=== PATIENT | male | born 1960 | race Caucasian/White ===

== ENCOUNTER 2016-09-17 17:41 | Inpatient (IN) | payer OTHER ==
[~2016-09-17] VITALS: Ht 172.7 cm; Wt 88.0 kg
[~2016-09-17 17:41] MED LIST: ALDACTONE50 MG PO; AMB5 PO; AMITRIPTYLINE H25 MG PO; AZU500 PO; BEN10 PO; DILAUDID4 MG PO; DUR25P TOP; ELA25 PO; FENTANYL TR25 MCG/H1 TD; FOLIC ACID PO; HYDROMORPHONE4 MG PO; K10 PO; L40 PO; LASIX40 MG PO; MIR25 PO; MORPHINE SULFAT15 MG; PRI20 PO; SPIRONOLACTONE PO; SUCRALFATE PO; TRAZODONE50 M1 PO; VALACYCLOVIR HYD1 GM PO; ZOVIRAX5% TOP
--- NOTE | 2016-09-17 18:39 | NUR ---
PT AMBULATORY TO ROOM ORTHO FROM TRIAGE.
--- NOTE | 2016-09-17 19:06 | NUR ---
PT IS A 56 YEAR OLD MALE, PRESENTS TO ED WITH C/O N/V X5 DAYS. PT DENIES ANY DIARRHEA OR CONSTIPATION. PT HAS CHRONIC ABDOMINAL PAIN FROM X5 HERNIA SURGERIES. PT CHRONICALLY TAKES NORCOS. PT BREATHING IS EVEN AND UNLABORED, NO S/S OF RESPRAITORY DISTRESS. SPEECH IS CLEAR AND APPROPRIATE. PT A./OX4. PT HOOKED TO FULL RN CASE MANAGEMENT. MSE PERFORMED BY DR. MARINO.
[2016-09-17 19:29] LABS: microscopic required? NO
[2016-09-17 19:33] LABS: urine erythrocyte NEGATIVE (NEGATIVE)
[2016-09-17 19:59] LABS: BASOPHIL % 0.3 % (0-2); PLATELET COUNT 185 x10^3mcL (130-400)
--- NOTE | 2016-09-17 20:01 | NUR ---
PT STATES THAT PAIN MEDICATION AND NAUSEA MEDICATION REALLY HELPED HIM. PT RECLINING IN [facility] WITH NAD. WILL CONTINUE TO ANIRUDH.
[2016-09-17 20:37] LABS: ALBUMIN 4.5 g/dL (3.4-5.0); ALKALINE PHOSPHATASE 85 U/L (46-116); ALT/SGPT 43 U/L (16-63); AMYLASE 84 U/L (25-115); AST/SGOT 46 U/L (15-37); BILIRUBIN TOTAL 2.6 mg/dL (0.20-1.00); CALCIUM 8.1 mg/dL (8.5-10.1); CARBON DIOXIDE 27.4 mmol/L (21-32); CHLORIDE SERUM 96 mmol/L (98-107); CREATININE SERUM 1.1 mg/dL (0.7-1.3); GFR1 > 60 mL/min; GLUCOSE SERUM 120 mg/dL (74-106); LIPASE 202 IU/L (73-393); SODIUM SERUM 138 mmol/L (136-145)
[2016-09-17 20:39] LABS: TOTAL PROTEIN, SERUM 8.5 g/dL (6.4-8.2)
[2016-09-17 20:42] LABS: POTASSIUM SERUM 2.1 mmol/L (3.5-5.1)
[2016-09-17] MEDS ORDERED: GOOD SENSE OMEP20 MG PO (21:18)
[2016-09-17] MEDS ORDERED: COLACE100 MG PO (21:18)
--- NOTE | 2016-09-17 21:55 | NUR ---
REPORT GIVEN TO MADINA FOR FURTHER CARE OF PT.
[2016-09-17 22:41] VITALS: BP 114/84
--- NOTE | 2016-09-17 22:49 | NUR ---
REC'D AOX4, SPEECH CLEAR. DENIES PAIN. NOT ON TELE. ON RA, NO SOB NOTED. DENIES NV. AMBULATORY WITH STEADY GAIT. ORIENTED PT TO ROOM AND SURROUNDINGS. CALL LIGHT WITHIN REACH, PROVIDED REPORT TO SEAN PAINTER FOR CONTUINITY OF CARE
--- NOTE | 2016-09-17 23:00 | NUR ---
PT RESTING IN SEMI VANCE'S POSITION. NO C/O PAIN AT THIS TIME. NO DISTRESS NOTED. IV ON LEFT WRIST, KCL INFUSING. SAFETY MEASURES IN PLACE. INSTRUCTED PT TO CALL IF ASSISTANCE IS NEEDED. CALL LIGHT WITHIN REACH.
[2016-09-18 06:10] LABS: BASOPHIL % 0.3 % (0-2); PLATELET COUNT 135 x10^3mcL (130-400)
[2016-09-18 06:30] VITALS: BP 112/70
--- NOTE | 2016-09-18 06:30 | NUR ---
PT SLEPT ON AND OFF DURING SHIFT. C/O OF PAIN X1, MEDICATED WITH MORPHINE. SAFETY MEASURES IN PLACE. INSTRUCTED PT TO CALL IF ASSISTANCE IS NEEDED. CALL LIGHT WITHIN REACH. WILL ENDORSE CONTINUITY OF CARE TO DAY SHIFT RN.
[2016-09-18 06:38] LABS: RED CELL DISTRIBUTION WIDTH 14.8 % (11.5-14.5)
[2016-09-18 07:06] LABS: ALBUMIN 3.4 g/dL (3.4-5.0); ALKALINE PHOSPHATASE 63 U/L (46-116); ALT/SGPT 30 U/L (16-63); AST/SGOT 35 U/L (15-37); BILIRUBIN DIRECT 0.54 mg/dL (0.0-0.2); BILIRUBIN TOTAL 1.9 mg/dL (0.20-1.00); CALCIUM 7.4 mg/dL (8.5-10.1); CHLORIDE SERUM 101 mmol/L (98-107); GFR1 > 60 mL/min; GLUCOSE SERUM 97 mg/dL (74-106); MAGNESIUM 1.4 mg/dL (1.8-2.4); SODIUM SERUM 139 mmol/L (136-145); TOTAL PROTEIN, SERUM 6.4 g/dL (6.4-8.2)
[2016-09-18 07:09] LABS: POTASSIUM SERUM 2.3 mmol/L (3.5-5.1)
--- NOTE | 2016-09-18 07:25 | NUR ---
PT SITTING AT EDGE OF BED SAYING HE MAY WANT TO LEAVE BECAUSE HIS PAIN HAD NOT BEEN ADDRESED. IV IS NO LONGER PATENT. ASKED PT TO PLEASE BE PATIENT. I WILL GET REPORT INSERT NEW IV AND ADMIN PAIN MED. PT CAROLYN.
--- NOTE | 2016-09-18 08:24 | NUR ---
INSERTED NEW IV TO LEFT FA. REMOVED EXSISTING IV. CHANGED GOWN AND LINENS. PT SITTING UP EATING BREAKFAST. NO TELE. D5 1/2 NS & 40K INFUSING 80 CC HOUR. ADMIN MORPHINE 2 MG IV. PT SAYS HE IS FEELING CALMER NOW.
[2016-09-18 09:40] VITALS: BP 99/58
--- NOTE | 2016-09-18 10:02 | NUR ---
Andrez TO DR. HAUSER'S OFFICE. PT HAVING SEVERE ABD PAIN. 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
--- NOTE | 2016-09-18 13:07 | NUR ---
MAG CAALER INFUSED. FIRST KRIDER INFUSING. SEEN BY DR. MURPHY.
--- NOTE | 2016-09-18 14:26 | NUR ---
SLEEPING. STARTED 2ND K-RIDER.
--- NOTE | 2016-09-18 15:56 | NUR ---
Initial Nutrition Assessment Dx: Hypokalemia, Intractable Vomiting PMHx: Anxiety, Cirrhosis, chronic back pain, HTN PSHx: left foot sx, hernia repair x5 Labs: K 2.3, Ca 7.4, T Bili 1.9, alk phos 63, Mg 1.4, H/H 12.3/36, (09/18), Ammonia 42 (09/17) Meds: KCl, Dilaudid, Colace, Zofran, Diet: Clear Liquids PO Intake: 100% of cardiac breakfast Ht: 68in Wt: 194# BMI: 29.5 (overweight) IBW: 154# %IBW: 126% UBW: 165# Age: 56yo M Food Allergies: none Food Preferences: Dislikes pork, red meat, fried foods and lactose. Prefers chamomile with honey. 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 Recent wt change: gained 30# in 6 months, intentional Vitamin/Supplement use: MVI when he remembers Special diet at home: no red mean, processed food, cheese, pork or fried foods Physical activity: none Education: not warranted at this time Pt appeared drowsy but well-nourished upon RD visit. Pt had difficulty concentrating when prompted for questions, some answers were unclear. Pt chronically takes Norcos for abdominal pain s/p 5 hernia repairs. PT was in [facility] before vomiting began, said he "was eating fine and feeling great". Pt [place] in the [place]. Pt reports he suffers from insomnia and finds he has a bigger appetite on days he does not sleep. Patient willing to drink and oral supplement. Pt october D/C carlos 09/18, per RN. Estimated Nutritional Needs Based on actual body weight 88.2 kg Energy: 0642-5633 kcal/d (25-30 kcal/kg) Protein: 71-88 g/d (0.8-1g/kg) Fluid: 3666-7797 ml/d (1 ml/kcal) or per doctor Nutrition Diagnosis Altered GI function related to intractable vomiting as evidenced by intractable vomiting x 5 days LANGUAGE TEACHER and 2 episodes of vomiting since admission. Intervention 1. Advance as tolerated to Regular diet. 2. Consider adding Boost Breeze once daily if poor appetite persists and PO intake is <75% Monitor/Evaluate Goal: PO intake at least 75% of estimated needs Monitor: PO intake, Labs, GI function F/U in 2-5 days as MOD risk
--- NOTE | 2016-09-18 15:58 | NUR ---
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 Intervention 1. Advance as tolerated to Regular diet. 2. Consider adding Boost Breeze once daily if poor appetite persists and PO intake is <75%
[2016-09-18 16:54] VITALS: BP 103/75
--- NOTE | 2016-09-18 17:23 | NUR ---
CHANGED LINENS 2ND TIME TODAY.
--- NOTE | 2016-09-18 17:38 | NUR ---
2ND KAMRON COMPLETED.
--- NOTE | 2016-09-18 18:20 | NUR ---
AMBULATORY. DILAUDID PO ADMIN THIS AM HELPFUL FOR ABD. PAIN. RECEIVED 1 MAG RIDER AND 2 K RIDERS. TOLERATES CLEAR LIQUID DIET. VSS. CONTINUES ON D5 1/2 NS & 40K 80 CC HOUR. CALL LIGHT WITHIN REACH. BMP 1800 TO CK K+ LEVEL.
[2016-09-18 18:48] LABS: CALCIUM 7.7 mg/dL (8.5-10.1); CARBON DIOXIDE 25.6 mmol/L (21-32); CHLORIDE SERUM 104 mmol/L (98-107); CREATININE SERUM 0.9 mg/dL (0.7-1.3); GFR1 > 60 mL/min; GLUCOSE SERUM 98 mg/dL (74-106); POTASSIUM SERUM 3.3 mmol/L (3.5-5.1); SODIUM SERUM 141 mmol/L (136-145)
--- NOTE | 2016-09-18 19:25 | NUR ---
RECEIVED PT FROM AM NURSE. A/OX4. LAYING IN BED COMFORTABLY. NO SOB. COMPLAINS OF PAIN. PAIN SCALE 8/10. PULSES ARE EVEN AND PALPABLE. LUNG SOUNDS ARE CLEAR. BREATH SOUNDS ARE EVEN AND UNLABORED. ABD SOFT AND ROUND. NO EDEMA NOTED. CALL LIGHT WITHIN REACH. WILL CONTINUE TO MONITOR.
--- NOTE | 2016-09-18 20:36 | NUR ---
PT STARTED ON POTASSIUM CLORIDE. WILL CONTINUE TO MONITOR.
[2016-09-18 21:30] VITALS: BP 118/57
[2016-09-19 06:11] LABS: PLATELET COUNT 136 x10^3mcL (130-400)
[2016-09-19 06:19] VITALS: BP 102/72
[2016-09-19 06:40] LABS: RED CELL DISTRIBUTION WIDTH 15.6 % (11.5-14.5)
--- NOTE | 2016-09-19 06:52 | NUR ---
MADE ROUNDS. PT AWAKE. ALL NEEDS MET AND ATTENDED TO. DENIES PAIN AT THIS TIME. IV INFUSING WELL. BED IN LOWEST POSITION. CALL LIGHT WITHIN REACH. WILL CONTINUE TO MONITOR AND ENDORSE ALL CARE TO ONCOMING NURSE.
[2016-09-19 07:12] LABS: ALKALINE PHOSPHATASE 57 U/L (46-116); ALT/SGPT 28 U/L (16-63); AST/SGOT 32 U/L (15-37); BILIRUBIN DIRECT 0.52 mg/dL (0.0-0.2); BILIRUBIN TOTAL 1.6 mg/dL (0.20-1.00); CALCIUM 7.5 mg/dL (8.5-10.1); CARBON DIOXIDE 21.6 mmol/L (21-32); CHLORIDE SERUM 106 mmol/L (98-107); CREATININE SERUM 0.8 mg/dL (0.7-1.3); GFR1 > 60 mL/min; GLUCOSE SERUM 88 mg/dL (74-106); POTASSIUM SERUM 3.2 mmol/L (3.5-5.1); SODIUM SERUM 141 mmol/L (136-145)
--- NOTE | 2016-09-19 07:45 | NUR ---
ALERT AND ORIENTED. C/O ABD PAIN AND NAUSEA. BREATHING FREELY ON RA. NO TELE. INDEPENDENT W ADL'S. CLEAR LIQUID BREAKFAST. WANTS SOMETHINE MORE SOLID. D5/12 NS & 40K INFUSING 80 CC HOUR. VSS. CALL LIGHT WITHIN REACH.
--- NOTE | 2016-09-19 08:14 | NUR ---
RECEIVED ORDERS FROM DR. MEIR TOBAR FOR K+ 3.2, DIET FULL LIQUIDS ADVANCE TOLERATED AND BMP AT NOON.
[2016-09-19 09:30] LABS: BAND NEUTROPHIL 2 % (0-10); BASOPHIL 0 % (0-2); MONOCYTE 12 % (0-7); SEGMENTED NEUTROPHILS 51 % (37-75)
[2016-09-19 09:31] LABS: rbc morphology (normal/abnorm) ABNORMAL (NORMAL)
[2016-09-19 10:06] VITALS: BP 110/77
[2016-09-19 13:18] LABS: CALCIUM 7.7 mg/dL (8.5-10.1); CARBON DIOXIDE 25.2 mmol/L (21-32); CHLORIDE SERUM 108 mmol/L (98-107); CREATININE SERUM 0.8 mg/dL (0.7-1.3); GFR1 > 60 mL/min; GLUCOSE SERUM 119 mg/dL (74-106); POTASSIUM SERUM 3.8 mmol/L (3.5-5.1); SODIUM SERUM 141 mmol/L (136-145)
[2016-09-19 13:21] VITALS: BP 110/77
--- NOTE | 2016-09-19 15:24 | NUR ---
PT WAITING FOR HIS SISTER TO PICK HIM UP. DC'D TO HOME. IV X 2 DC'D NO TELE. ALL DC INSTRUCTIONS REVIEWED WITH AND SIGNED BY PT. NO PRESCRIPTIONS GIVEN. TO CALL PCP WEDNESDAY FOR DONOVAN WITHIN 1 WEEK. LAST K 3.8.
== END 2016-09-19 16:00 | disposition home or self-care (01) | DRG 641 ==
LOC: ED 17:41 → MU 21:19
PROVIDERS: Emergency Medicine; Internal Medicine Pulmonary Disease; ADMIT Internal Medicine
DX: E87.6 Hypokalemia (principal); K56.7 Ileus, unspecified; F11.23 Opioid dependence with withdrawal; K72.90 Hepatic failure, unspecified without coma; I10 Essential (primary) hypertension; K70.30 Alcoholic cirrhosis of liver without ascites; G89.29 Other chronic pain; F41.8 Other specified anxiety disorders; Z76.5 Malingerer [conscious simulation]; R11.2 Nausea with vomiting, unspecified; T40.0X5A Adverse effect of opium, initial encounter; Y92.018 Other place in single-family (private) house as the place of occurrence of the external cause
CPT/HCPCS: 83880; J1885; J2270; J2405; J3475; J3480; J7030; J7040; Q0092

== ENCOUNTER 2016-10-04 13:01 | Emergency (ER) | payer OTHER ==
[~2016-10-04] VITALS: Ht 175.3 cm; Wt 94.3 kg
[~2016-10-04 13:01] MED LIST changes: +COLACE100 MG PO; +GOOD SENSE OMEP20 MG PO
[2016-10-04 14:20] LABS: ALBUMIN 3.8 g/dL (3.4-5.0); ALKALINE PHOSPHATASE 71 U/L (46-116); ALT/SGPT 46 U/L (16-63); AST/SGOT 41 U/L (15-37); BILIRUBIN TOTAL 0.8 mg/dL (0.20-1.00); CARBON DIOXIDE 28.6 mmol/L (21-32); CHLORIDE SERUM 105 mmol/L (98-107); GFR1 > 60 mL/min; GLUCOSE SERUM 105 mg/dL (74-106); LIPASE 189 IU/L (73-393); SODIUM SERUM 141 mmol/L (136-145); TOTAL PROTEIN, SERUM 7.2 g/dL (6.4-8.2)
[2016-10-04 14:24] LABS: PLATELET COUNT 163 x10^3mcL (130-400); RED CELL DISTRIBUTION WIDTH 14.4 % (11.5-14.5)
[2016-10-04 14:26] LABS: POTASSIUM SERUM 2.9 mmol/L (3.5-5.1)
[2016-10-04 15:53] LABS: MONOCYTE 9 % (0-7); SEGMENTED NEUTROPHILS 69 % (37-75)
[2016-10-04 15:54] LABS: BAND NEUTROPHIL 0 % (0-10); BASOPHIL 0 % (0-2); PLATELET MORPHOLOGY LARGE PLATELET SEEN; rbc morphology (normal/abnorm) NORMAL (NORMAL)
[2016-10-04 15:55] VITALS: BP 138/72
== END 2016-10-04 15:55 | disposition home or self-care (01) ==
LOC: ED 13:01
PROVIDERS: Emergency Medicine
DX: E87.6 Hypokalemia (principal); I10 Essential (primary) hypertension; R25.2 Cramp and spasm; K74.60 Unspecified cirrhosis of liver; Z88.0 Allergy status to penicillin; Z79.899 Other long term (current) drug therapy
CPT/HCPCS: J1885; Q0162

== ENCOUNTER 2016-12-03 13:10 | Inpatient (IN) | payer OTHER ==
[~2016-12-03] VITALS: Ht 172.7 cm; Wt 84.0 kg
[2016-12-03 15:45] LABS: BASOPHIL % 0.6 % (0-2); PLATELET COUNT 163 x10^3mcL (130-400); RED CELL DISTRIBUTION WIDTH 13.9 % (11.5-14.5)
[2016-12-03 16:05] LABS: ALBUMIN 4.4 g/dL (3.4-5.0); ALKALINE PHOSPHATASE 89 U/L (46-116); ALT/SGPT 42 U/L (16-63); AST/SGOT 45 U/L (15-37); BILIRUBIN TOTAL 1.4 mg/dL (0.20-1.00); CALCIUM 8.6 mg/dL (8.5-10.1); CARBON DIOXIDE 27.6 mmol/L (21-32); CHLORIDE SERUM 98 mmol/L (98-107); CHOLESTEROL 139 mg/dL (<200); CHOLESTEROL/HDL RATIO 2.4; GFR1 > 60 mL/min; GLUCOSE SERUM 121 mg/dL (74-106); HDL CHOLESTEROL 59 mg/dL (40-60); LIPASE 158 IU/L (73-393); SODIUM SERUM 138 mmol/L (136-145); TRIGLYCERIDES 89 mg/dL (<150)
[2016-12-03 16:07] LABS: TOTAL PROTEIN, SERUM 8.4 g/dL (6.4-8.2)
[2016-12-03 16:08] LABS: POTASSIUM SERUM 2.4 mmol/L (3.5-5.1)
[2016-12-03 16:14] LABS: microscopic required? NO
[2016-12-03 16:24] LABS: T3 TOTAL 1.28 ng/mL
[2016-12-03 16:30] LABS: FREE T4 1.12 ng/dL (0.76-1.46); T4(THYROXINE) 7.8 ug/dL (4.7-13.3)
[2016-12-03 16:59] LABS: urine erythrocyte NEGATIVE (NEGATIVE)
[2016-12-03] MEDS ORDERED: LACTULOSE10 GM/152 PO (17:24)
[2016-12-03 18:12] LABS: MAGNESIUM 1.5 mg/dL (1.8-2.4); PHOSPHOROUS 3.6 mg/dL (2.5-4.9)
[2016-12-03 18:22] VITALS: BP 144/102
[2016-12-03 21:31] VITALS: BP 119/79
[2016-12-03 22:51] LABS: CALCIUM 7.9 mg/dL (8.5-10.1); CARBON DIOXIDE 29.7 mmol/L (21-32); CHLORIDE SERUM 100 mmol/L (98-107); CREATININE SERUM 1.1 mg/dL (0.7-1.3); GFR1 > 60 mL/min; GLUCOSE SERUM 148 mg/dL (74-106); POTASSIUM SERUM 3.2 mmol/L (3.5-5.1); SODIUM SERUM 137 mmol/L (136-145)
[2016-12-04 05:41] VITALS: BP 110/76
[2016-12-04 05:53] LABS: BASOPHIL % 0.4 % (0-2); PLATELET COUNT 132 x10^3mcL (130-400); RED CELL DISTRIBUTION WIDTH 13.9 % (11.5-14.5)
[2016-12-04 06:13] LABS: CALCIUM 7.8 mg/dL (8.5-10.1); CARBON DIOXIDE 25.1 mmol/L (21-32); CHLORIDE SERUM 101 mmol/L (98-107); GFR1 > 60 mL/min; GLUCOSE SERUM 123 mg/dL (74-106); MAGNESIUM 1.7 mg/dL (1.8-2.4); PHOSPHOROUS 3.3 mg/dL (2.5-4.9); SODIUM SERUM 137 mmol/L (136-145)
[2016-12-04 06:23] LABS: POTASSIUM SERUM 2.8 mmol/L (3.5-5.1)
[2016-12-04 10:25] VITALS: BP 112/68
[2016-12-04 14:46] VITALS: BP 106/70
[2016-12-04 15:52] LABS: CALCIUM 8.3 mg/dL (8.5-10.1); CARBON DIOXIDE 26.8 mmol/L (21-32); CHLORIDE SERUM 99 mmol/L (98-107); CREATININE SERUM 1.3 mg/dL (0.7-1.3); GFR1 > 60 mL/min; GLUCOSE SERUM 146 mg/dL (74-106); POTASSIUM SERUM 3.3 mmol/L (3.5-5.1); SODIUM SERUM 135 mmol/L (136-145)
[2016-12-04 17:23] VITALS: Ht 172.7 cm; Wt 84.0 kg
[2016-12-04 18:10] VITALS: BP 96/66
[2016-12-04 21:46] VITALS: BP 114/77
[2016-12-05 06:01] VITALS: BP 128/73
[2016-12-05 06:32] LABS: CARBON DIOXIDE 23.6 mmol/L (21-32); CHLORIDE SERUM 103 mmol/L (98-107); GFR1 > 60 mL/min; GLUCOSE SERUM 149 mg/dL (74-106); MAGNESIUM 1.7 mg/dL (1.8-2.4); POTASSIUM SERUM 3.4 mmol/L (3.5-5.1); SODIUM SERUM 138 mmol/L (136-145)
[2016-12-05 06:35] LABS: BASOPHIL % 0.2 % (0-2); RED CELL DISTRIBUTION WIDTH 13.9 % (11.5-14.5)
[2016-12-05 06:40] LABS: PLATELET COUNT 113 x10^3mcL (130-400)
[2016-12-05 09:38] VITALS: BP 124/78
[2016-12-05] MEDS ORDERED: XIFAXAN550 M1 PO (10:26)
[2016-12-05] MEDS ORDERED: INSPRA25 MG PO (10:28)
[2016-12-05 10:50] VITALS: BP 124/78
== END 2016-12-05 11:50 | disposition home or self-care (01) | DRG 641 ==
LOC: ED 13:10 → DU 17:01
PROVIDERS: Specialist; ADMIT Family Medicine
DX: E87.6 Hypokalemia (principal); J90 Pleural effusion, not elsewhere classified; K72.90 Hepatic failure, unspecified without coma; R73.03 Prediabetes; K70.30 Alcoholic cirrhosis of liver without ascites; F10.10 Alcohol abuse, uncomplicated; I10 Essential (primary) hypertension; G89.29 Other chronic pain; Z68.28 Body mass index [BMI] 28.0-28.9, adult
CPT/HCPCS: 36600; 82962; 83880; 84439; G0480; J1170; J1940; J2270; J2405; J3475; J3480; J7030; Q0092; Q9967

== ENCOUNTER 2016-12-18 12:37 | Emergency (ER) | payer OTHER ==
[~2016-12-18] VITALS: Ht 175.3 cm; Wt 92.1 kg
[~2016-12-18 12:37] MED LIST changes: +INSPRA25 MG PO; +LACTULOSE10 GM/152 PO; +XIFAXAN550 M1 PO
[2016-12-18 16:18] LABS: ALBUMIN 3.9 g/dL (3.4-5.0); ALKALINE PHOSPHATASE 77 U/L (46-116); ALT/SGPT 37 U/L (16-63); AST/SGOT 36 U/L (15-37); BILIRUBIN TOTAL 1.3 mg/dL (0.20-1.00); CALCIUM 8.5 mg/dL (8.5-10.1); CARBON DIOXIDE 27.2 mmol/L (21-32); CHLORIDE SERUM 101 mmol/L (98-107); GFR1 > 60 mL/min; GLUCOSE SERUM 90 mg/dL (74-106); SODIUM SERUM 139 mmol/L (136-145); TOTAL PROTEIN, SERUM 7.5 g/dL (6.4-8.2)
[2016-12-18 16:27] LABS: POTASSIUM SERUM 2.8 mmol/L (3.5-5.1)
[2016-12-18 17:09] LABS: BASOPHIL % 0.3 % (0-2); PLATELET COUNT 153 x10^3mcL (130-400); RED CELL DISTRIBUTION WIDTH 14.3 % (11.5-14.5)
[2016-12-18 17:48] LABS: MAGNESIUM 1.5 mg/dL (1.8-2.4)
[2016-12-18 22:34] VITALS: BP 100/63
[2016-12-18 23:23] LABS: MAGNESIUM 1.5 mg/dL (1.8-2.4); POTASSIUM SERUM 3.2 mmol/L (3.5-5.1)
== END 2016-12-19 00:08 | disposition home or self-care (01) ==
LOC: ED 12:37
PROVIDERS: Emergency Medicine
DX: E87.6 Hypokalemia (principal); M79.1 Myalgia
CPT/HCPCS: J1885; J3475; J3480; J7030; J7050

== ENCOUNTER 2017-02-10 15:28 | Emergency (ER) | payer OTHER ==
[~2017-02-10] VITALS: Ht 172.7 cm; Wt 96.3 kg
[2017-02-10 16:24] LABS: CALCIUM 8.5 mg/dL (8.5-10.1); CARBON DIOXIDE 24.3 mmol/L (21-32); CHLORIDE SERUM 104 mmol/L (98-107); CREATININE SERUM 0.9 mg/dL (0.7-1.3); GFR1 > 60 mL/min; GLUCOSE SERUM 128 mg/dL (74-106); POTASSIUM SERUM 3.3 mmol/L (3.5-5.1); SODIUM SERUM 138 mmol/L (136-145)
[2017-02-10 16:29] LABS: ALBUMIN 3.7 g/dL (3.4-5.0); ALKALINE PHOSPHATASE 74 U/L (46-116); ALT/SGPT 42 U/L (16-63); AST/SGOT 47 U/L (15-37); BILIRUBIN TOTAL 0.86 mg/dL (0.20-1.00); CHOLESTEROL 113 mg/dL (<200); HDL CHOLESTEROL 53 mg/dL (40-60); MAGNESIUM 1.9 mg/dL (1.8-2.4); TOTAL PROTEIN, SERUM 7.7 g/dL (6.4-8.2)
[2017-02-10 16:32] LABS: BASOPHIL % 0.5 % (0-2); PLATELET COUNT 153 x10^3mcL (130-400)
[2017-02-10 16:55] LABS: RED CELL DISTRIBUTION WIDTH 15.1 % (11.5-14.5)
[2017-02-10 18:16] LABS: microscopic required? NO
[2017-02-10 18:43] LABS: UA SPECIFIC GRAVITY 1.005 (1.005-1.035)
[2017-02-10 18:44] LABS: urine erythrocyte NEGATIVE (NEGATIVE)
[2017-02-10 19:53] VITALS: BP 144/96
== END 2017-02-10 19:53 | disposition home or self-care (01) ==
LOC: ED 15:28
PROVIDERS: Emergency Medicine
DX: R53.1 Weakness (principal); I10 Essential (primary) hypertension; G89.29 Other chronic pain; M54.9 Dorsalgia, unspecified; Z88.0 Allergy status to penicillin; M17.11 Unilateral primary osteoarthritis, right knee; R42 Dizziness and giddiness; R11.2 Nausea with vomiting, unspecified
CPT/HCPCS: J2405; J3010

== ENCOUNTER 2017-04-28 07:19 | Emergency (ER) | payer OTHER ==
[~2017-04-28] VITALS: Ht 175.3 cm; Wt 98.0 kg
[2017-04-28 08:04] LABS: PLATELET COUNT 147 x10^3mcL (130-400); RED CELL DISTRIBUTION WIDTH 13.8 % (11.5-14.5)
[2017-04-28 08:25] LABS: ALBUMIN 3.5 g/dL (3.4-5.0); ALKALINE PHOSPHATASE 72 U/L (46-116); ALT/SGPT 34 U/L (16-63); AST/SGOT 47 U/L (15-37); CALCIUM 8.1 mg/dL (8.5-10.1); CARBON DIOXIDE 30.9 mmol/L (21-32); CHLORIDE SERUM 97 mmol/L (98-107); CREATININE SERUM 1.2 mg/dL (0.7-1.3); GFR1 > 60 mL/min; GLUCOSE SERUM 196 mg/dL (74-106); HDL CHOLESTEROL 40 mg/dL (40-60); SODIUM SERUM 136 mmol/L (136-145); TOTAL PROTEIN, SERUM 7.5 g/dL (6.4-8.2); TRIGLYCERIDES 66 mg/dL (<150)
[2017-04-28 08:27] LABS: CHOLESTEROL 109 mg/dL (<200); CHOLESTEROL/HDL RATIO 2.7; POTASSIUM SERUM 2.8 mmol/L (3.5-5.1)
[2017-04-28 08:28] LABS: FREE T4 0.99 ng/dL (0.76-1.46); FREE THYROXINE INDEX 2.1 ug/dL (1.4-4.5); T4(THYROXINE) 6.1 ug/dL (4.7-13.3)
[2017-04-28 08:30] LABS: T3 TOTAL 1.02 ng/mL
[2017-04-28 09:41] LABS: BAND NEUTROPHIL 1 % (0-10); MONOCYTE 10 % (0-7); SEGMENTED NEUTROPHILS 60 % (37-75)
[2017-04-28 09:42] LABS: PLATELET MORPHOLOGY LARGE PLATELET SEEN; rbc morphology (normal/abnorm) NORMAL (NORMAL)
[2017-04-28 09:56] VITALS: BP 121/79
== END 2017-04-28 10:15 | disposition home or self-care (01) ==
LOC: ED 07:19
PROVIDERS: Specialist
DX: E87.6 Hypokalemia (principal); I10 Essential (primary) hypertension; G89.29 Other chronic pain; Z88.0 Allergy status to penicillin; Z79.899 Other long term (current) drug therapy
CPT/HCPCS: 36415; 83880; 84439; Q0092

== ENCOUNTER 2017-11-23 11:27 | Emergency (ER) | payer OTHER ==
[~2017-11-23] VITALS: Ht 175.3 cm; Wt 97.1 kg
[2017-11-23 11:32] VITALS: Ht 175.3 cm; Wt 97.1 kg
[2017-11-23 15:05] LABS: UA SPECIFIC GRAVITY <=1.005 (1.005-1.035); microscopic required? YES; urine erythrocyte NEGATIVE (NEGATIVE)
[2017-11-23 15:07] LABS: BASOPHIL % 0.3 % (0-2); PLATELET COUNT 138 x10^3mcL (130-400); RED CELL DISTRIBUTION WIDTH 14.2 % (11.5-14.5)
[2017-11-23 15:23] LABS: ALBUMIN 3.6 g/dL (3.4-5.0); ALKALINE PHOSPHATASE 67 U/L (46-116); ALT/SGPT 56 U/L (16-63); AST/SGOT 51 U/L (15-37); BILIRUBIN TOTAL 1.29 mg/dL (0.20-1.00); CALCIUM 8.8 mg/dL (8.5-10.1); CHLORIDE SERUM 106 mmol/L (98-107); CREATININE SERUM 1.1 mg/dL (0.7-1.3); GFR1 > 60 mL/min; GLUCOSE SERUM 128 mg/dL (74-106); LIPASE 233 IU/L (73-393); MAGNESIUM 1.8 mg/dL (1.8-2.4); SODIUM SERUM 142 mmol/L (136-145); TOTAL PROTEIN, SERUM 7.2 g/dL (6.4-8.2)
[2017-11-23 15:33] LABS: POTASSIUM SERUM 2.8 mmol/L (3.5-5.1)
[2017-11-23 21:20] VITALS: BP 110/71
== END 2017-11-23 21:20 | disposition home or self-care (01) ==
LOC: ED 11:27
PROVIDERS: Emergency Medicine
DX: N39.0 Urinary tract infection, site not specified (principal); R42 Dizziness and giddiness; E87.6 Hypokalemia; I10 Essential (primary) hypertension; G89.29 Other chronic pain; M54.9 Dorsalgia, unspecified; Z88.0 Allergy status to penicillin
CPT/HCPCS: 83880; J3475; J3490

== ENCOUNTER 2018-02-01 09:11 | Emergency (ER) | payer OTHER ==
[~2018-02-01] VITALS: Ht 175.3 cm; Wt 95.3 kg
[2018-02-01 09:16] VITALS: Ht 175.3 cm; Wt 95.3 kg
[2018-02-01 10:33] LABS: BASOPHIL % 1.1 % (0-2); PLATELET COUNT 170 x10^3mcL (130-400)
[2018-02-01 10:35] LABS: RED CELL DISTRIBUTION WIDTH 15.9 % (11.5-14.5)
[2018-02-01 10:59] LABS: CALCIUM 8.3 mg/dL (8.5-10.1); CARBON DIOXIDE 25.5 mmol/L (21-32); CHLORIDE SERUM 104 mmol/L (98-107); CREATININE SERUM 1.2 mg/dL (0.7-1.3); GFR1 > 60 mL/min; GLUCOSE SERUM 117 mg/dL (74-106); POTASSIUM SERUM 4.1 mmol/L (3.5-5.1); SODIUM SERUM 137 mmol/L (136-145)
[2018-02-01 11:58] VITALS: BP 140/81
== END 2018-02-01 11:58 | disposition home or self-care (01) ==
LOC: ED 09:11
PROVIDERS: Emergency Medicine
DX: S62.001A Unspecified fracture of navicular [scaphoid] bone of right wrist, initial encounter for closed fracture (principal); R42 Dizziness and giddiness; Z88.0 Allergy status to penicillin; I10 Essential (primary) hypertension; F41.9 Anxiety disorder, unspecified; G89.29 Other chronic pain; M54.9 Dorsalgia, unspecified; W01.0XXA Fall on same level from slipping, tripping and stumbling without subsequent striking against object, initial encounter; Y92.89 Other specified places as the place of occurrence of the external cause; Y93.89 Activity, other specified; Y99.8 Other external cause status
CPT/HCPCS: A4570; J2405; Q0092

== ENCOUNTER 2018-09-09 11:48 | Emergency (ER) | payer BC ==
[~2018-09-09] VITALS: Ht 175.3 cm; Wt 94.1 kg
[2018-09-09 11:53] VITALS: Ht 175.3 cm; Wt 94.1 kg
[2018-09-09 14:13] LABS: BASOPHIL % 0.1 % (0-2)
[2018-09-09 14:16] LABS: CALCIUM 8.3 mg/dL (8.5-10.1); CARBON DIOXIDE 26.7 mmol/L (21-32); CHLORIDE SERUM 99 mmol/L (98-107); GFR1 > 60 mL/min; GLUCOSE SERUM 122 mg/dL (74-106); POTASSIUM SERUM 3.1 mmol/L (3.5-5.1); SODIUM SERUM 138 mmol/L (136-145)
[2018-09-09 14:21] LABS: ALBUMIN 3.8 g/dL (3.4-5.0); ALKALINE PHOSPHATASE 102 U/L (46-116); ALT/SGPT 60 U/L (16-63); AST/SGOT 73 U/L (15-37); BILIRUBIN TOTAL 3.5 mg/dL (0.20-1.00)
[2018-09-09 14:26] LABS: PLATELET COUNT 96 x10^3mcL (130-400); RED CELL DISTRIBUTION WIDTH 14.9 % (11.5-14.5)
[2018-09-09 19:09] VITALS: BP 143/96
[2018-09-10] MEDS ORDERED: POTASSIUM CHLO10 ME2 PO (14:44)
== END 2018-09-09 19:13 | disposition home or self-care (01) ==
LOC: ED 11:48
PROVIDERS: Emergency Medicine
DX: B34.9 Viral infection, unspecified (principal); R07.89 Other chest pain; G89.29 Other chronic pain; I10 Essential (primary) hypertension; F41.9 Anxiety disorder, unspecified; K74.60 Unspecified cirrhosis of liver; Z88.0 Allergy status to penicillin; Z98.890 Other specified postprocedural states
CPT/HCPCS: 83880; 87491; 87591; J1885; J2405; Q0092

== ENCOUNTER 2018-09-10 11:17 | Inpatient (IN) | payer OTHER ==
[~2018-09-10] VITALS: Ht 175.3 cm; Wt 94.7 kg
[2018-09-10 11:29] VITALS: Ht 175.3 cm; Wt 94.7 kg
[2018-09-10 12:23] LABS: PLATELET COUNT 95 x10^3mcL (130-400); RED CELL DISTRIBUTION WIDTH 15.1 % (11.5-14.5)
[2018-09-10 12:32] LABS: ALBUMIN 3.4 g/dL (3.4-5.0); ALKALINE PHOSPHATASE 81 U/L (46-116); ALT/SGPT 57 U/L (16-63); AST/SGOT 74 U/L (15-37); BILIRUBIN TOTAL 2.72 mg/dL (0.20-1.00); CALCIUM 7.6 mg/dL (8.5-10.1); CARBON DIOXIDE 20.7 mmol/L (21-32); CHLORIDE SERUM 97 mmol/L (98-107); CREATININE SERUM 1.2 mg/dL (0.7-1.3); GFR1 > 60 mL/min; GLUCOSE SERUM 117 mg/dL (74-106); SODIUM SERUM 132 mmol/L (136-145); TOTAL PROTEIN, SERUM 7.9 g/dL (6.4-8.2)
[2018-09-10 12:49] LABS: BAND NEUTROPHIL 1 % (0-10); BASOPHIL 0 % (0-2); MONOCYTE 4 % (0-7); SEGMENTED NEUTROPHILS 93 % (37-75)
[2018-09-10 12:50] LABS: POTASSIUM SERUM 2.8 mmol/L (3.5-5.1)
[2018-09-10 12:51] LABS: PLATELET MORPHOLOGY PLATELETS DECREASED; rbc morphology (normal/abnorm) ABNORMAL (NORMAL)
[2018-09-10 14:15] LABS: microscopic required? YES; urine erythrocyte TRACE (NEGATIVE)
[2018-09-10] MEDS ORDERED: POTASSIUM CHLO10 ME2 PO (14:44)
[2018-09-10 16:47] VITALS: BP 130/88
[2018-09-10 19:40] VITALS: BP 125/105
[2018-09-10 23:09] VITALS: BP 116/77
[2018-09-11 03:12] VITALS: BP 114/69
[2018-09-11 04:35] LABS: BASOPHIL % 0.1 % (0-2)
[2018-09-11 04:36] LABS: PLATELET COUNT 84 x10^3mcL (130-400)
[2018-09-11 04:50] LABS: ALBUMIN 2.9 g/dL (3.4-5.0); ALKALINE PHOSPHATASE 74 U/L (46-116); ALT/SGPT 48 U/L (16-63); AST/SGOT 66 U/L (15-37); BILIRUBIN TOTAL 1.7 mg/dL (0.20-1.00); CARBON DIOXIDE 21.9 mmol/L (21-32); CHLORIDE SERUM 104 mmol/L (98-107); GFR1 > 60 mL/min; GLUCOSE SERUM 89 mg/dL (74-106); POTASSIUM SERUM 3.1 mmol/L (3.5-5.1); SODIUM SERUM 138 mmol/L (136-145); TOTAL PROTEIN, SERUM 7.5 g/dL (6.4-8.2)
[2018-09-11 07:26] VITALS: BP 146/90
[2018-09-11 16:42] VITALS: BP 125/80
[2018-09-11 20:39] VITALS: BP 125/83
[2018-09-12 04:25] VITALS: BP 132/88
[2018-09-12 06:43] LABS: CALCIUM 7.8 mg/dL (8.5-10.1); CARBON DIOXIDE 24.4 mmol/L (21-32); CHLORIDE SERUM 102 mmol/L (98-107); CREATININE SERUM 0.8 mg/dL (0.7-1.3); GFR1 > 60 mL/min; GLUCOSE SERUM 103 mg/dL (74-106); MAGNESIUM 1.8 mg/dL (1.8-2.4); POTASSIUM SERUM 3.3 mmol/L (3.5-5.1); SODIUM SERUM 137 mmol/L (136-145)
[2018-09-12 06:48] LABS: BASOPHIL % 0.2 % (0-2)
[2018-09-12 06:56] LABS: PLATELET COUNT 118 x10^3mcL (130-400); RED CELL DISTRIBUTION WIDTH 15.6 % (11.5-14.5)
[2018-09-12 08:45] VITALS: BP 113/68
[2018-09-12 11:59] VITALS: BP 109/68
[2018-09-12 16:43] VITALS: BP 125/80
[2018-09-12 20:44] VITALS: BP 123/93
[2018-09-13 04:43] VITALS: BP 124/73
[2018-09-13 07:21] LABS: BASOPHIL % 0.4 % (0-2)
[2018-09-13 07:25] LABS: ALKALINE PHOSPHATASE 96 U/L (46-116); ALT/SGPT 67 U/L (16-63); AST/SGOT 100 U/L (15-37); BILIRUBIN DIRECT 0.68 mg/dL (0.0-0.2); BILIRUBIN TOTAL 1.4 mg/dL (0.20-1.00); CALCIUM 8.3 mg/dL (8.5-10.1); CARBON DIOXIDE 25.5 mmol/L (21-32); CHLORIDE SERUM 107 mmol/L (98-107); CREATININE SERUM 0.8 mg/dL (0.7-1.3); GFR1 > 60 mL/min; GLUCOSE SERUM 105 mg/dL (74-106); POTASSIUM SERUM 4.2 mmol/L (3.5-5.1); SODIUM SERUM 141 mmol/L (136-145); TOTAL PROTEIN, SERUM 7.6 g/dL (6.4-8.2)
[2018-09-13 07:26] LABS: ALBUMIN 2.8 g/dL (3.4-5.0)
[2018-09-13 07:33] LABS: PLATELET COUNT 128 x10^3mcL (130-400); RED CELL DISTRIBUTION WIDTH 15.6 % (11.5-14.5)
[2018-09-13 10:19] VITALS: BP 124/73
[2018-09-13 10:39] VITALS: BP 119/74
== END 2018-09-13 14:28 | disposition home or self-care (01) | DRG 872 ==
LOC: ED 11:17 → DU 13:43 → IC 13:43 → DU 09-11 13:33
PROVIDERS: Emergency Medicine; Internal Medicine; ADMIT Internal Medicine Pulmonary Disease
DX: A41.9 Sepsis, unspecified organism (principal); N39.0 Urinary tract infection, site not specified; J06.9 Acute upper respiratory infection, unspecified; B34.9 Viral infection, unspecified; E87.6 Hypokalemia; K80.20 Calculus of gallbladder without cholecystitis without obstruction; K70.30 Alcoholic cirrhosis of liver without ascites; G93.0 Cerebral cysts; I10 Essential (primary) hypertension; M54.5 Low back pain; G89.4 Chronic pain syndrome; F41.9 Anxiety disorder, unspecified; F10.11 Alcohol abuse, in remission
CPT/HCPCS: 87804; J0696; J1650; J1885; J2405; J3370; J3475; J3480; J7030; J7050; Q0092

== ENCOUNTER 2018-09-15 12:48 | Emergency (ER) | payer OTHER ==
[~2018-09-15] VITALS: Ht 172.7 cm; Wt 88.5 kg
[~2018-09-15 12:48] MED LIST changes: +POTASSIUM CHLO10 ME2 PO
[2018-09-15 15:20] VITALS: BP 153/99
== END 2018-09-15 15:20 | disposition home or self-care (01) ==
LOC: ED 12:48
DX: R42 Dizziness and giddiness (principal); R50.9 Fever, unspecified; N39.0 Urinary tract infection, site not specified; I10 Essential (primary) hypertension; F41.9 Anxiety disorder, unspecified; Z88.0 Allergy status to penicillin; Z98.890 Other specified postprocedural states
CPT/HCPCS: 82962

== ENCOUNTER 2018-10-16 23:28 | Emergency (ER) | payer OTHER ==
[~2018-10-16] VITALS: Ht 175.3 cm; Wt 95.3 kg
[2018-10-16 23:37] VITALS: BP 166/101; Ht 175.3 cm; Wt 95.3 kg
== END 2018-10-16 23:37 | disposition other institution (70) ==
LOC: ED 23:28
DX: Z02.89 Encounter for other administrative examinations (principal); F10.129 Alcohol abuse with intoxication, unspecified; K46.9 Unspecified abdominal hernia without obstruction or gangrene; I10 Essential (primary) hypertension; F41.9 Anxiety disorder, unspecified; G89.29 Other chronic pain; Z86.19 Personal history of other infectious and parasitic diseases; Z88.0 Allergy status to penicillin; V46.9XXA Unspecified car occupant injured in collision with other nonmotor vehicle in traffic accident, initial encounter; Y93.89 Activity, other specified; Y92.89 Other specified places as the place of occurrence of the external cause; Y99.8 Other external cause status

== ENCOUNTER 2019-02-21 08:11 | Emergency (ER) | payer OTHER ==
[~2019-02-21] VITALS: Ht 193 cm; Wt 77.1 kg
[2019-02-21 08:14] VITALS: Ht 193 cm; Wt 77.1 kg
[2019-02-21 09:19] LABS: PLATELET COUNT 142 x10^3mcL (130-400)
[2019-02-21 09:32] LABS: microscopic required? NO
[2019-02-21 09:38] LABS: urine erythrocyte NEGATIVE (NEGATIVE)
[2019-02-21 09:48] LABS: ALBUMIN 4.2 g/dL (3.4-5.0); ALKALINE PHOSPHATASE 88 U/L (46-116); ALT/SGPT 118 U/L (16-63); AST/SGOT 152 U/L (15-37); BILIRUBIN TOTAL 1.13 mg/dL (0.20-1.00); CALCIUM 8.3 mg/dL (8.5-10.1); CARBON DIOXIDE 28.1 mmol/L (21-32); CHLORIDE SERUM 102 mmol/L (98-107); CREATININE SERUM 1.1 mg/dL (0.7-1.3); GFR1 > 60 mL/min; GLUCOSE SERUM 120 mg/dL (74-106); LIPASE 242 IU/L (73-393); SODIUM SERUM 145 mmol/L (136-145)
[2019-02-21 09:51] LABS: POTASSIUM SERUM 2.7 mmol/L (3.5-5.1); TOTAL PROTEIN, SERUM 8.9 g/dL (6.4-8.2)
[2019-02-21 10:37] LABS: RED CELL DISTRIBUTION WIDTH 15.7 % (11.5-14.5)
[2019-02-21 11:51] VITALS: BP 125/86
== END 2019-02-21 11:51 | disposition home or self-care (01) ==
LOC: ED 08:11
PROVIDERS: Emergency Medicine
DX: E87.6 Hypokalemia (principal); T51.91XA Toxic effect of unspecified alcohol, accidental (unintentional), initial encounter; R06.00 Dyspnea, unspecified; R10.816 Epigastric abdominal tenderness; S61.501A Unspecified open wound of right wrist, initial encounter; I10 Essential (primary) hypertension; F41.9 Anxiety disorder, unspecified; G89.29 Other chronic pain; Z98.890 Other specified postprocedural states; X58.XXXA Exposure to other specified factors, initial encounter; Y93.9 Activity, unspecified; Y92.89 Other specified places as the place of occurrence of the external cause; Y99.8 Other external cause status
CPT/HCPCS: G0480; J2405; J3490; J7030

== ENCOUNTER 2019-05-20 14:38 | Emergency (ER) | payer OTHER ==
[~2019-05-20] VITALS: Ht 175.3 cm; Wt 95.3 kg
[2019-05-20 15:09] VITALS: Ht 175.3 cm; Wt 95.3 kg
[2019-05-20 15:40] LABS: BASOPHIL % 0.1 % (0-2); PLATELET COUNT 144 x10^3mcL (130-400); RED CELL DISTRIBUTION WIDTH 15.5 % (11.5-14.5)
[2019-05-20 15:51] LABS: CALCIUM 8.1 mg/dL (8.5-10.1); CARBON DIOXIDE 33.1 mmol/L (21-32); CHLORIDE SERUM 103 mmol/L (98-107); CREATININE SERUM 1.3 mg/dL (0.7-1.3); GFR1 > 60 mL/min; GLUCOSE SERUM 143 mg/dL (74-106); POTASSIUM SERUM 3.5 mmol/L (3.5-5.1); SODIUM SERUM 142 mmol/L (136-145)
[2019-05-20 15:55] LABS: ALBUMIN 3.8 g/dL (3.4-5.0); ALKALINE PHOSPHATASE 71 U/L (46-116); ALT/SGPT 50 U/L (16-63); AST/SGOT 30 U/L (15-37); BILIRUBIN TOTAL 1.6 mg/dL (0.20-1.00); TOTAL PROTEIN, SERUM 7.5 g/dL (6.4-8.2)
[2019-05-20 19:31] VITALS: BP 106/78
== END 2019-05-20 19:31 | disposition home or self-care (01) ==
LOC: ED 14:38
PROVIDERS: Emergency Medicine
DX: R11.0 Nausea (principal); R42 Dizziness and giddiness; I10 Essential (primary) hypertension; F41.9 Anxiety disorder, unspecified; G89.29 Other chronic pain; M54.9 Dorsalgia, unspecified; Z88.0 Allergy status to penicillin
CPT/HCPCS: 36415; J7030; Q0092